=== PATIENT | female | born 1970 | race Two or more races ===

== ENCOUNTER 2016-12-26 15:19 | Emergency (ER) | payer OTHER ==
[2016-12-26] MEDS ORDERED: HYDROCODONE/ACETAMINOPHEN 5/325MG TABLET ONE (15:40)
--- NOTE | 2016-12-26 16:19 | RAD ---
FINGER LEFT HISTORY: Thumb pain after lifting injury. COMPARISONS: None. FINDINGS: Views of the left thumb were obtained including stress views demonstrating normal bony mineralization. The osseous structures are grossly intact with no definitive fracture seen. The joint spaces are appropriate. No evidence of significant subluxation is observed. The soft tissue structures are intact. IMPRESSION: 1. Negative views of the left thumb with no discrete fracture visualized.
== END 2016-12-26 16:56 | disposition home or self-care (01) ==
LOC: ED 15:19
DX: S63.602A Unspecified sprain of left thumb, initial encounter (principal); I10 Essential (primary) hypertension; E11.9 Type 2 diabetes mellitus without complications; Z79.82 Long term (current) use of aspirin; Z79.84 Long term (current) use of oral hypoglycemic drugs; Z79.4 Long term (current) use of insulin; X50.0XXA Overexertion from strenuous movement or load, initial encounter; Y92.9 Unspecified place or not applicable
CPT/HCPCS: 73140; 99283 ×2; 29130; A9270